=== PATIENT | female | born 1955 | race Caucasian/White ===

== ENCOUNTER → 2018-12-27 | Day surgery (SDC) | payer BC ==
[2018-12-27 07:26] VITALS: BP 143/49
[2018-12-27] MEDS: Lactated Ringers 1,000 ML IV SCH (07:29)
== END ==
LOC: CC.SDS 07:08
PROVIDERS: ATTEND Family Medicine
DX: K21.9 Gastro-esophageal reflux disease without esophagitis (principal); Z53.8 Procedure and treatment not carried out for other reasons; K92.1 Melena; R19.4 Change in bowel habit; D64.9 Anemia, unspecified; I48.91 Unspecified atrial fibrillation; E11.9 Type 2 diabetes mellitus without complications; E03.9 Hypothyroidism, unspecified; Z88.0 Allergy status to penicillin; Z79.899 Other long term (current) drug therapy; Z79.84 Long term (current) use of oral hypoglycemic drugs
CPT/HCPCS: 36415; 80162; 93005; J7120